=== PATIENT | female | born 1965 | race Caucasian/White ===

== ENCOUNTER 2016-09-26 04:01 | Inpatient (IN) | payer SELFPAY ==
[~2016-09-26] VITALS: Ht 165.1 cm; Wt 92.4 kg
--- NOTE | ~2016-09-26 | DS ---
PATIENT'S NAME: BOBBY MARX [facility] AGE: 51 Y [address] ROOM: [place] [address] LOCATION: GPCU ADMIT DATE: 09/26/2016 Discharge Summary DISCHARGE DATE: 09/27/2016 FAMILY PHYSICIAN: Tia Huizar MD ATTENDING PHYSICIAN: Aj Gotti V ADMITTING DIAGNOSIS: Acute pulmonary embolism. DISCHARGE DIAGNOSES: Acute pulmonary embolism. SECONDARY DIAGNOSES: 1. History of cerebrovascular accident. 2. History of tobacco use. 3. History of myocardial infarction, without percutaneous coronary intervention. All listed secondary diagnoses were present on admission and/or history. PROCEDURE: Echocardiogram. HISTORY OF PRESENTING ILLNESS: The patient is a 51-year-old female with past medical historyof tobacco use, history of CVA, and PR without PCI, who presents from [facility] with bilateral PE. HOSPITAL COURSE: The patient was admitted. She was started on heparin drip. Echocardiogram was done. Echocardiogram was unremarkable with normal right ventricular size and no signs of strain. During the stay, the patient had some pleuritic pain. She was given some pain medication with resolvement on the next day. The patient was assessed for oxygen demand, did not require any oxygen on ambulation. The patient reported that she wanted to go home and was ready to go home. Social Work was consulted for medication and followup. The patient was discharged on Xarelto 15 mg b.i.d. to be taken for 21 days and to start on 20 mg daily. A long discussion made about risks and benefits of Xarelto. Discussed about the risk factor of bleeding and instructed the patient to go to the nearest hospital if any signs of bleeding. The patient understands the risk. Also, discussed about tobacco cessation. The patient is currently not ready to stop smoking. We will also start the patient on Lipitor as she has a history of CVA. Of note, she has a history of CVA without residual deficit. CONDITION: Stable. DISPOSITION: Home to follow up with primary care physician. DISCHARGE MEDICATIONS: Please see MAR. PATIENT'S NAME: BOBBY MARX [facility] AGE: 51 Y [address] ROOM: [place] [address] LOCATION: GPCU ADMIT DATE: 09/26/2016 Discharge Summary DISCHARGE DATE: 09/27/2016 FAMILY PHYSICIAN: Tia Huizar MD ATTENDING PHYSICIAN: Aj Gotti V DISCHARGE INSTRUCTIONS: Follow up with PCP. PENDING STUDIES: Hypercoagulable studies are still currently pending. Follow up with primary care physician. Greater than 30 minutes was spent on discharge planning. MD JACKIE GALE/modivy /[id number] d: 09/28/162 t: 09/30/16 1610, DISCHARGE SUMMARY
--- NOTE | ~2016-09-26 | ECHO ---
Transthoracic Echocardiography Report (TTE) Demographics Patient Name BOBBY MARX Date of Study 09/26/2016 Patient Number [id number] Visit Number [id number] Date of 1965 Room Number G6323 Gender Female Number Age 51 year(s) Referring Ana María Rocha V Car Hiker Sarath Lopez Physician RDCS, RVT Physician Interpreting Maksim Titus High Rigger Physician Supervising Ordering Ana María Wetzel MD/MLP Physician MD Nurse Stress Television News Video Editor Conclusions Contractility Score Summary Normal Left Ventricular contractility was noted. Summary Technically difficult exam. Normal LV/RV size and systolic function. The estimated left ventricular ejection fraction is 60-65%. Mild concentric left ventricular hypertrophy. Diastolic assessment reveals Grade I diastolic dysfunction. The left atrium is mildly dilated by LA volume index measurement. Mild tricuspid regurgitation by color Doppler. No significant valvular abnormalities. No evidence of pericardial effusion. Procedure Type of Study TTE procedure:2D Echocardiogram. Procedure Date Date: 09/26/2016 Start: 07:42 AM Study Location: Inpatient Portable Technical Quality: Limited visualization due to lung interference. Indications:Pulmonary embolus. Appropriate Use Criteria: 9 Patient Status: Routine HR: 84 bpm BP: 146/82 mmHg M-Mode/2D Measurements LV Diastolic Dimension: 4.36 cm LV Systolic Dimension: 2.51 cm LV Septum Diastolic: 1.08 cm LV PW Diastolic: 1.14 cm Cardiac Output: 5.47 l/min LA Dimension: 3.5 cm LVOT: 2.1 cm LVOT VTI: 18.8 cm RV Base: 3.06 cm LV Stroke volume: 65.08 ml RV Length: 7.05 cm TAPSE: 2.13 cm TDI-S': 15.4 cm/s Doppler Measurements AV Peak Velocity: 1.29 m/s MV Peak E-Wave: 1.12 m/s AV Peak Gradient: 6.66 mmHg MV Peak A-Wave: 1.32 m/s AV Mean Gradient: 5 mmHg MV E/A Ratio: 0.85 LVOT Peak Velocity: 0.95 m/s MV Deceleration Time: 342 msec TR Velocity:2.13 m/s PV Peak Velocity: 1.17 m/s TR Gradient:18.15 mmHg PV Peak Gradient: 5.48 mmHg Estimated RAP:15 mmHg Estimated PASP: 33.15 mmHg Estimated RVSP: 33 mmHg A' Septal Velocity: 0.16 m/s E' Septal Velocity: 0.09 m/s A' Lateral Velocity: 0.2 m/s E' Lateral Velocity: 0.15 m/s Findings Left Ventricle Mild concentric left ventricular hypertrophy. Diastolic assessment reveals Grade I diastolic dysfunction. Right Ventricle Normal right ventricle structure and function. Left Atrium The left atrium is mildly dilated by LA volume index measurement. Right Atrium Normal right atrial size. IVC measures 2.06 cm with inspiratory collapse. Mitral Valve Grossly normal mitral valve structure and function. Aortic Valve Normal aortic valve structure and function. Tricuspid Valve Mild tricuspid regurgitation by color Doppler. The tricuspid valve is not well visualized. Pulmonic Valve PV is not well seen. Pericardial Effusion No evidence of pericardial effusion. Miscellaneous Visualized portions of the aortic root appear normal in size. Pleural Effusion No evidence of pleural effusion. Contractility Score LV regional wall motion:(0-Non visualized 1-Normal 2-Hypokinesis 3-Akinesis 4-Dyskinesis 5-Aneurysm) Signature dtt: MIKAYLA BERMUDEZ dtd: 09/26/16 0742 Physician Self Edit
--- NOTE | ~2016-09-26 | HP ---
PATIENT'S NAME: BOBBY MARX [facility] AGE: 51 Y [address] ROOM: [address] [place], [place] [address] LOCATION: [facility] ADMIT DATE: 09/26/2016 History & Physical DISCHARGE DATE: FAMILY PHYSICIAN: PHYSICIAN, UNKNOWN ATTENDING PHYSICIAN: JOSE G MYERS V DATE OF SERVICE: CHIEF COMPLAINT: Back pain. HISTORY OF PRESENT ILLNESS: The patient is a transfer from [place]. She is a 51-year-old female who carries past medical history of "2 heart attacks" as well as "2 strokes." The patient presented to the hospital in [place] earlier last night with complaints of sudden onset back pain associated with deep inspiration. Workup revealed an elevated D-dimer and bilateral large PE. There was also evidence of RV strain on the CTA and a transfer to [facility] was requested. The patient had a single episode of hypotension while in transit, but aside from that, was stable. At this point, her only complaint is intermittent sharp bilateral back pain, which is exacerbated by inspiration. She denies any significant shortness of breath outside of that associated with chest pain. No palpitations, nausea, vomiting, or diaphoresis. REVIEW OF SYSTEMS: A complete review of systems was conducted. All systems are negative aside from pertinent positives mentioned above. PAST MEDICAL HISTORY: Two heart attacks "that which were apparently not treated surgically or interventionally." The patient eventually took herself off all the medications. Reported history of 2 strokes, for which the patient has received tPA. Fibromyalgia. SOCIAL HISTORY: The patient lives at home with her . She does not work. She admits to daily cigarette use and approximating that about 30 pack years. She also endorses occasional marijuana use. FAMILY HISTORY: PATIENT'S NAME: BOBBY MARX [facility] AGE: 51 Y [address] ROOM: [address] [place], [place] [address] LOCATION: GPCU ADMIT DATE: 09/26/2016 History & Physical DISCHARGE DATE: FAMILY PHYSICIAN: PHYSICIAN, UNKNOWN ATTENDING PHYSICIAN: JOSE G MYERS V She did have a sister who had a heart attack, though she is not sure what age. No other pertinent family history. CURRENT MEDICATIONS: 1. Cymbalta. 2. Trazodone. 3. Aspirin. PHYSICAL EXAMINATION: VITAL SIGNS: Blood pressure 150/60, heart rate is in the 80s, saturating 96% on room air, afebrile, respirations 16. GENERAL: Appears as a middle-aged female of much older age than stated. NEUROLOGIC: Nonfocal. Exam shows pupils are equal and reactive to light. LYMPHATIC: No cervical lymphadenopathy. ENDOCRINE: No thyromegaly. LUNGS: Lung exam shows diminished breath sounds in all peters. HEART: Reveals regular rate and rhythm without appreciable murmurs, gallops, or rubs. ABDOMEN: Soft, nontender, nondistended. : No costovertebral angle tenderness. VASCULAR: 2+ pedal pulses. No Homans sign. No lower extremity edema. MUSCULOSKELETAL: Unremarkable. PSYCHIATRIC: Appropriate mood, cognition, and affect. LABORATORY DATA: Studies from outside facility are significant for EKG, which shows sinus rhythm in the 80s with no ST-segment or T-wave abnormalities. A CAT scan as above. ASSESSMENT AND PLAN: This is a 51-year-old female who will be admitted with: 1. Acute bilateral pulmonary embolism; the patient was started on heparin at the outside facility. We will continue the heparin here. At this point, she is hemodynamically stable and has stable saturations on room air. 2. Evidence of right ventricular strain, on the CTA; we will obtain a 2D echo to further characterize the cardiac function. 3. Recurrent thromboembolic events, as per history and present pulmonary embolisms; the patient denies any recent immobilization and we are obliged to rule out an acquired or inherited thrombotic state. We will check prothrombin, factor V Leiden, lupus anticoagulant, and antiphospholipid antibody. Antithrombin and activated protein-C/assays will not be accurate as the patient is actively being anticoagulated. 4. Chronic tobacco use. We will start the patient on nicotine. 5. Fibromyalgia. We will continue her pain regimen. 6. History of coronary artery disease; the patient took her off all her PATIENT'S NAME: BOBBY MARX [facility] AGE: 51 Y [address] ROOM: [id number] [place], [place] [address] LOCATION: [facility] ADMIT DATE: 09/26/2016 History & Physical DISCHARGE DATE: FAMILY PHYSICIAN: PHYSICIAN, UNKNOWN ATTENDING PHYSICIAN: JOSE G MYERS V medications and we will at least check her lipids and hemoglobin A1c, as she is at a very high risk for recurrence. Additional management will depend on clinical course. Time dedicated to this patient's encounter is 35 minutes. MD MARI CAI/marley /[id number] D: 605 T: 601 HISTORY & PHYSICAL
[~2016-09-26 04:01] MED LIST: ASPIRIN EC81 MG PO; CYMBALTA60 MG PO; DESYREL100 MG PO; ZOCOR40 MG PO
[2016-09-26 05:11] LABS: BASOPHIL % 0.3 %; EOSINOPHIL # 0.1 K/uL (0.0-0.5); EOSINOPHIL % 0.6 %; HEMATOCRIT 33.9 % (33.0-46.0); HEMOGLOBIN 10.9 g/dL (10.0-15.0); IMMATURE GRANULOCYTE # 0.1 K/uL (0.0-0.3); IMMATURE GRANULOCYTE % 0.4 %; LYMPHOCYTE # 1.7 K/uL (0.8-4.0); LYMPHOCYTE % 12.7 %; MCH 28.2 pg (27.0-34.0); MCHC 32.2 gm/dL (32.0-36.5); MCV 87.6 fl (83.0-98.0); MONOCYTE # 0.9 K/uL (0.0-1.0); MONOCYTE % 6.7 %; MPV 10.3 fl (9.4-12.4); NEUTROPHIL # (ANC) 10.3 K/uL (1.8-7.8); NEUTROPHIL % 79.3 %; NRBC % 0 /100WBC (0-0.00); PLATELET COUNT 251 K/uL (150-450); RBC 3.87 M/uL (3.50-5.50); RDW-CV 16.8 % (11.9-14.6)
[2016-09-26 05:28] LABS: INR - (THERAPEUTIC) 0.99 (0.92-1.07); PROTIME 10.4 SECONDS (9.8-11.4)
[2016-09-26 05:57] LABS: ALBUMIN 3.1 gm/dL (3.5-5.0); ALK PHOS 82 IU/L (33-138); ALT 17 IU/L (12-78); ANION GAP 11.6 (10.0-19.0); AST 11 IU/L (10-40); BLOOD UREA NITROGEN 6 mg/dL (6-24); CALCIUM 8.3 mg/dL (8.5-10.5); CHLORIDE 112 mMol/L (96-110); CO2 21 mMol/L (22-32); CREATININE 0.7 mg/dL (0.5-1.1); ESTIMATED GFR (MDRD EQUATION) > 60; MAGNESIUM 2.4 mg/dL (1.8-2.6); PHOSPHORUS 3.5 mg/dL (2.5-4.9); POTASSIUM 3.6 mMol/L (3.7-5.1); SODIUM 141 mMol/L (135-145); TOTAL BILIRUBIN 0.3 mg/dL (0.0-1.5); TOTAL PROTEIN 6.9 g/dL (6.0-8.4)
--- NOTE | 2016-09-26 06:36 | NUR ---
Pt is a 51 year old female who was admitted to PCU @0410 for large bilateral PE's. Has a history of fibromyalgia, HTN, pack a day smoker, Stroke x2, CAD, Frequent UTIs. Around 0 on September 25 patient was doing some heavy lifting during errands and started experiencing pain in shoulder blades. Pt went home and laid down and pain grew worse and spread to left back/side and became short of breath with "waves of pain". Brought to [facility] from [facility]. Allergy to Codeine.
--- NOTE | 2016-09-26 14:18 | NUR ---
Introduced self and role of care management to pt and her . 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 They do not have insurance but Jenniffer was up with [employer] and will do a disability and Medicaid application and she also has the financial application. She is wanting to go home but I did explain the importance of staying and she will at this time. She does have a doctor and it is Dr Huizar and she just saw her not that long ago. I did discuss with her the different meds they may need to send her home on warafin or Xarelto and her is pretty knowledgable because one need to monitor and pay for labs and md and the other is pretty expensive. I explained I can call her md office and see about medication access program and also our [facility] and get her a free 30 day card. I did call Sofia with [facility] and to send the application over and she can send on to the clinic. I also called [facility] [phone] and fax [phone] and spoke with Clarke and they will help out in anyway and have xarelto samples there and have a rep that can help and I also told her that Sofia with [facility] can send over the forms as well. I will updated pt and have her sign a form and give them a 30 day card if this is what they choose.
--- NOTE | 2016-09-26 18:52 | NUR ---
Significant Event: VSS AND RA. AFEBRILE. HEPARIN GTT CONTINUES PER PROTOCOL AT 1700 UNITS/HR-AWAITING PTTHP RESULTS AT 1745. PERCOCET AT 1130 AND MS 2 MG IVP GIVEN X3 THIS SHIFT FOR MID BACK/RADIATING TO CHEST PAIN;IS MUCH IMPROVED THIS AFTERNOON. UP TO BSC AND IS VERY SOB WITH ANY ACTIVITY, SO HAS BEEN KEPT ON BEDREST THIS SHIFT. REFUSES NICOTINE PATCH. FAMILY AT BEDSIDE AND UPDATED ON POC. Follow up: CM AND SOCIAL WORK FOLLOWING REGARDING D/C PLANS AND FINANCIAL ASSISTANCE WITH MEDS ON D/C.
--- NOTE | 2016-09-27 03:49 | NUR ---
Patient A/Ox3. VSS ex on 2L NC while sleeping. Bedside commode. Lungs clear/diminished. Bowel sounds present. Patient does have her period. IV to Rt AC Heparin gtt at 1800units next PTTHP 0900. Percocet x1 for lung pain with relief noted. Significant other at bedside. Patient states she will be leaving today.
--- NOTE | 2016-09-27 09:25 | NUR ---
PT SCREENED D/T (+) MST. EATING WELL, MAY DISCHARGE TODAY. BMI REMAINS IN OBESE RANGE. NO NUTRITION-RELATED DIAGNOSIS IDENTIFIED. WILL ASSIST NEEDED.
--- NOTE | 2016-09-27 12:36 | NUR ---
I spoke with DR Siddiqi and he is sending home on Xarelto. I did leave a free 30 day card that will work with the tapering dose as well it says. He is to write two separate scripts for this. I will fax the discharge orders to [facility] once complete. WIll continue to follow.
[2016-09-27] MEDS ORDERED: LIPITOR40 MG PO (15:18)
[2016-09-27] MEDS ORDERED: XARELTO15 MG PO (15:27)
--- NOTE | 2016-09-27 15:50 | NUR ---
DISCHARGED TO HOME, TAKEN OUT TO PRIVATE AUTO VIA WHEELCHAIR ACCOMPANIED BY HOSPICE ART THERAPIST. VSS. WALKED IN [place] WITH SATS 89-92%, AT REST PATIENT'S O2 SATS ARE 95%: MD AWARE. LUNG SOUNDS CLEAR, DIMINISHED IN BASES. NEW MEDICATION EDUCATION GIVEN, DISCHARGE INSTRUCTIONS AND FOLLOW-UP INSTRUCTIONS GIVEN TO PATIENT.
== END 2016-09-27 15:49 | disposition disaster alternative care site (69) | DRG 176 ==
LOC: GPCU 04:01
PROVIDERS: ADMIT Internal Medicine
DX: I26.99 Other pulmonary embolism without acute cor pulmonale (principal); F17.210 Nicotine dependence, cigarettes, uncomplicated; M79.7 Fibromyalgia; I25.10 Atherosclerotic heart disease of native coronary artery without angina pectoris; Z79.82 Long term (current) use of aspirin; I25.2 Old myocardial infarction; Z86.73 Personal history of transient ischemic attack (TIA), and cerebral infarction without residual deficits
CPT/HCPCS: J1644; J2270; J2405